=== PATIENT | male | born 1955 | race Caucasian/White ===

== ENCOUNTER 2021-08-10 08:07 | Observation (INO) ==
[2021-08-10] MEDS ORDERED: ONDANSETRON 4 MG/2 ML VIAL IV ONE (08:41)
[2021-08-10] MEDS ORDERED: SODIUM CHLORIDE 0.9% 1,000 ML IV STA (08:41)
[2021-08-10 08:46] LABS: Basophils # 0.1 10*3/uL (0.0-0.2); Basophils % 0.4 % (0.0-0.8); Eosinophils % 0.1 % (0.00-10.9); Hematocrit 46.1 VOL% (42.0-52.0); Hemoglobin 15.3 GM/DL (14.0-18.0); Immature Granulocytes % 0.5 %; Immature Granulocytes Absolute 0.08 #; Lymphocytes # 0.3 10*3/uL (1.4-4.0); Mean Corpuscular HGB Conc 33.2 GM/DL (32-36); Mean Corpuscular Volume 92.8 FL (87-102); Mean Platelet Volume 9.3 FL (9.6-12.0); Monocytes % 3.7 % (1.7-12.7); Neutrophils % 93.3 % (38.7-73.9); Platelet Count 176 T/CUMM (130-400); Red Blood Count 4.97 MC/CUMM (3.8-5.5); Red Cell Distribution Width 12.7 % (9.3-17.3); White Blood Count 16.2 T/CUMM (4-12)
[2021-08-10 09:04] LABS: Band Neutrophils 1 % (0-10); Lymphocytes 1 % (20-55); Platelet Estimate Adequate; Segmented Neutrophils 95 % (50-85); Total Cells Counted 100
[2021-08-10 09:23] LABS: Albumin 3.8 G/DL (3.4-5.0); Bilirubin,Total 0.7 MG/DL (0.20-1.00); Calcium 8.8 MG/DL (8.5-10.1); Potassium 4.2 MMOL/L (3.5-5.1); Total Protein 7.7 G/DL (6.4-8.2)
[2021-08-10] MEDS ORDERED: ONDANSETRON 4 MG/2 ML VIAL IV PRN (09:59)
[2021-08-10] MEDS ORDERED: GLUCAGON 1 MG VIAL IM PRN (09:59)
[2021-08-10] MEDS ORDERED: DEXTROSE 10% 250 ML BAG IV PRN (10:11)
[2021-08-10] MEDS ORDERED: LIDOCAINE 1% 20 ML VIAL INFILTRAT STA (10:19)
[2021-08-10] MEDS ORDERED: SODIUM CHLORIDE 0.9% 1,000 ML IV ONE (10:21)
[2021-08-10] MEDS: ENOXAPARIN 40 MG/0.4 ML SYRINGE SUBCUT SCH (11:24)
[2021-08-10] MEDS: PANTOPRAZOLE 40 MG TABLET PO SCH (11:24)
[2021-08-10] MEDS: ACETAMINOPHEN 325 MG TABLET PO PRN ×3 (11:27→21:00)
[2021-08-10 13:46] LABS: Glucose,Urine (UA) 500 mg/dL (Negative); Protein,Urine Negative; Urine Appearance Clear (Clear); Urine Color Yellow (Yellow); Urine pH 5.5 (4.5-8.0)
[2021-08-10 13:47] LABS: Bilirubin,Urine Negative (Negative); Blood, Urine Negative (Negative); Ketones,Urine Negative (Negative); Nitrite,Urine Negative (Negative); Urine Urobilinogen 0.2 EU/DL (<2.0)
[2021-08-10 13:53] LABS: Bacteria,Urine Occasional /HPF (Few); Mucus,Urine Moderate /LPF (Occasional); RBC,Urine 5 /HPF (0-4); Squamous Epithelial Cell,Urine Occasional /HPF (0-10)
[2021-08-10] MEDS: LACTATED RINGERS 1,000 ML IV SCH ×3 (17:22→23:29)
[2021-08-10] MEDS: INSULIN LISPRO 100 UNIT/ML SUBCUT SCH ×2 (17:22→21:00)
[2021-08-10] MEDS: ROSUVASTATIN 10 MG TABLET PO SCH (21:00)
[2021-08-10] MEDS ORDERED: INFLUENZA VIRUS VACCINE 0.5 ML SYRINGE IM ONE (21:00)
[2021-08-11 05:23] LABS: Basophils % 0.4 % (0.0-0.8); Eosinophils # 0.1 10*3/uL (0.0-0.87); Eosinophils % 1.1 % (0.00-10.9); Hematocrit 35.1 VOL% (42.0-52.0); Hemoglobin 11.5 GM/DL (14.0-18.0); Immature Granulocytes % 0.4 %; Immature Granulocytes Absolute 0.02 #; Lymphocytes # 0.7 10*3/uL (1.4-4.0); Lymphocytes % 12.4 % (21.2-54.2); Mean Corpuscular HGB Conc 32.8 GM/DL (32-36); Mean Corpuscular Volume 95.6 FL (87-102); Monocytes % 6.2 % (1.7-12.7); Neutrophils % 79.5 % (38.7-73.9); Platelet Count 124 T/CUMM (130-400); Red Blood Count 3.67 MC/CUMM (3.8-5.5); Red Cell Distribution Width 12.9 % (9.3-17.3); White Blood Count 5.5 T/CUMM (4-12)
[2021-08-11 06:04] LABS: Calcium 7.7 MG/DL (8.5-10.1); Osmolality,Calculated 284.3 MOS/KG (273-304); Potassium 3.8 MMOL/L (3.5-5.1)
[2021-08-11] MEDS: INSULIN LISPRO 100 UNIT/ML SUBCUT SCH ×4 (08:22→21:10)
[2021-08-11] MEDS: LACTATED RINGERS 1,000 ML IV SCH ×2 (08:23→17:21)
[2021-08-11] MEDS: PANTOPRAZOLE 40 MG TABLET PO SCH (09:38)
[2021-08-11] MEDS: CHOLECALCIFEROL 5,000 UNIT TABLET PO SCH (09:38)
[2021-08-11] MEDS: MULTIVITAMIN (CENTRUM) TABLET PO SCH (09:38)
[2021-08-11] MEDS: ASPIRIN EC 81 MG TABLET PO SCH (09:38)
[2021-08-11] MEDS: LEVOTHYROXINE 75 MCG TABLET PO SCH (09:38)
[2021-08-11] MEDS ORDERED: SODIUM CHLORIDE 0.9% 1,000 ML IV ONE (09:38)
[2021-08-11] MEDS: ENOXAPARIN 40 MG/0.4 ML SYRINGE SUBCUT SCH (09:39)
[2021-08-11] MEDS ORDERED: DEXTROSE 50% 25 GM/50 ML VIAL IV PRN (09:44)
[2021-08-11] MEDS ORDERED: MAGNESIUM SULF RIDER 2 GM/50 ML PREMIX IV PRN (09:46)
[2021-08-11] MEDS ORDERED: MAGNESIUM SULF RIDER 4 GM/100 ML PREMIX IV PRN (09:46)
[2021-08-11] MEDS: ROSUVASTATIN 10 MG TABLET PO SCH (20:43)
[2021-08-11] MEDS ORDERED: GABAPENTIN 300 MG CAPSULE PO SCH (21:00)
[2021-08-11] MEDS ORDERED: SERTRALINE 50 MG TABLET PO SCH (21:00)
[2021-08-12] MEDS: LACTATED RINGERS 1,000 ML IV SCH ×2 (02:07→08:58)
[2021-08-12 04:19] LABS: Basophils % 0.7 % (0.0-0.8); Eosinophils # 0.2 10*3/uL (0.0-0.87); Hematocrit 34.6 VOL% (42.0-52.0); Hemoglobin 11.4 GM/DL (14.0-18.0); Immature Granulocytes % 0.2 %; Immature Granulocytes Absolute 0.01 #; Lymphocytes # 1.2 10*3/uL (1.4-4.0); Lymphocytes % 22.2 % (21.2-54.2); Mean Corpuscular HGB Conc 32.9 GM/DL (32-36); Mean Platelet Volume 9.4 FL (9.6-12.0); Monocytes % 11.1 % (1.7-12.7); Neutrophils % 62.8 % (38.7-73.9); Platelet Count 124 T/CUMM (130-400); Red Blood Count 3.72 MC/CUMM (3.8-5.5); Red Cell Distribution Width 12.4 % (9.3-17.3); White Blood Count 5.4 T/CUMM (4-12)
[2021-08-12 04:38] LABS: Osmolality,Calculated 279.4 MOS/KG (273-304); Potassium 3.8 MMOL/L (3.5-5.1)
[2021-08-12 04:54] LABS: Eosinophils 2 % (0-10); Hypochromia Slight; Lymphocytes 25 % (20-55); Microcytosis Slight; Platelet Estimate Normal; Segmented Neutrophils 64 % (50-85); Total Cells Counted 100
[2021-08-12] MEDS: INSULIN LISPRO 100 UNIT/ML SUBCUT SCH (08:58)
[2021-08-12] MEDS: PANTOPRAZOLE 40 MG TABLET PO SCH (09:43)
[2021-08-12] MEDS: CHOLECALCIFEROL 5,000 UNIT TABLET PO SCH (09:43)
[2021-08-12] MEDS: ASPIRIN EC 81 MG TABLET PO SCH (09:43)
[2021-08-12] MEDS: LEVOTHYROXINE 75 MCG TABLET PO SCH (09:43)
[2021-08-12] MEDS: MULTIVITAMIN (CENTRUM) TABLET PO SCH (09:43)
[2021-08-12] MEDS: ENOXAPARIN 40 MG/0.4 ML SYRINGE SUBCUT SCH (09:44)
[2021-08-12] MEDS ORDERED: INFLUENZA VIRUS VACCINE 0.5 ML SYRINGE IM ONE (10:08)
[2021-08-12 10:51] VITALS: BP 113/51
== END 2021-08-12 10:35 | disposition home or self-care (01) ==
LOC: N.ED 08:07 → N.EDINP 08:07 → N.TELEN 16:20
PROVIDERS: ADMIT Internal Medicine; ATTEND Internal Medicine